=== PATIENT | male | born 1960 | race Caucasian/White ===

== ENCOUNTER → 2016-09-09 | Outpatient (CLI) | payer OTHER ==
--- NOTE | 2016-09-09 18:49 | DX ---
Chest, Two Views, September 09, 2016 at 1813 hours History: Cough. Comparison: None. Findings: Cardiac silhouette is [moderately] enlarged. Bilateral peribronchial thickening. Moderat e size retrocardiac hiatal hernia. No pneumonia, congestive heart failure, pleural effusion, or pneu mothorax. Impressions: 1. Moderate retrocardiac hiatal hernia. 2. [Cardiomegaly. 3. Probable bronchitis 4. No definite pneumonia. 5. Consider upper GI series. E:esteban
== END ==
LOC: FIMAGING 18:04
PROVIDERS: ATTEND Internal Medicine
DX: R05 Cough (principal); I51.7 Cardiomegaly; K44.9 Diaphragmatic hernia without obstruction or gangrene

== ENCOUNTER → 2017-09-22 | Outpatient (CLI) | payer OTHER | LOC: BMCIMAGING 10:09 | PROVIDERS: ATTEND Internal Medicine | DX: K44.9 Diaphragmatic hernia without obstruction or gangrene (principal) ==

== ENCOUNTER → 2017-10-31 | Outpatient (CLI) | payer OTHER | LOC: FIMAGING 16:33 | PROVIDERS: ATTEND Internal Medicine | DX: M79.89 Other specified soft tissue disorders (principal) ==

== ENCOUNTER → 2018-10-31 | Outpatient (CLI) | payer OTHER | LOC: BMCIMAGING 16:13 | PROVIDERS: ATTEND Internal Medicine | DX: R05 Cough (principal); K44.9 Diaphragmatic hernia without obstruction or gangrene ==